=== PATIENT | male | born 1990 | race Caucasian/White ===

== ENCOUNTER 2019-09-30 16:04 | Inpatient (IN) | payer OTHER ==
[~2019-09-30] VITALS: Ht 172.7 cm; Wt 59.4 kg
[2019-09-30 16:06] VITALS: BP 132/82
--- NOTE | 2019-09-30 16:19 | NUR ---
NOTIFIED DR ROLDAN PT WAS REFFERED BY PCP FOR POSSIBLE LT SIDED PNEUMOTHORAX
--- NOTE | 2019-09-30 16:19 | NUR ---
28/M C/O TEARING BACK FROM THE MID BACK RADIATING TO LEFT CHEST X 5 DAYS DENIES TRAUMA WENT TO URGENT CARE ON THURSDAY AND DX WITH ANXIETY. STATES SOB WITH TALKING WENT TO DR AGAIN AND REFERRED TO ER FOR MUFFLED BREATH SOUNDS AT LEFT LUNG DENIES PAIN AT THIS TIME. STATES PAIN USUALLY OCCURS WHEN CHANGING POSITION FROM SUPINE TO SITTING. PT AWAKE ,ALERT ,AFEBRILE ,SCE,CBS, DECREASE BS LLF. SPO2 100% RA, RR 24 AT THIS TIME. HX- CHILDHOOD ASTHMA RX- NONE
--- NOTE | 2019-09-30 16:22 | NUR ---
PA AT BEDSIDE ALONG WITH XRAY.
[2019-09-30] MEDS ORDERED: fentaNYL 0.05 MG/ML VIAL IVP ONE (16:30)
[2019-09-30] MEDS ORDERED: MIDAZOLAM 2 MG/2 ML VIAL IVP ONE (16:30)
[2019-09-30] MEDS ORDERED: MIDAZOLAM 2 MG/2 ML VIAL ONE (17:36)
[2019-09-30] MEDS ORDERED: fentaNYL 0.05 MG/ML VIAL ONE (17:37)
[2019-09-30] MEDS ORDERED: LIDOCAINE MPF 1% 10 ML ONE (17:59)
--- NOTE | 2019-09-30 18:00 | NUR ---
DR ROLDAN AT BEDSIDE STARTED TO PLACE TUBE IN PT LEFT SIDE.
--- NOTE | 2019-09-30 18:10 | NUR ---
CHEST TUBE INSERTED. PT TOLERATED PROCEDURE WELL.
--- NOTE | 2019-09-30 18:15 | NUR ---
LATE ENTRY- 75MCG FENTANYL GIVEN ORDERED WITH DR LAN AT BEDSIDE FOR ADMINISTRATION. 25MCG WASTED.
--- NOTE | 2019-09-30 18:21 | NUR ---
DR ROLDAN DONE WITH CHEST TUBE INSERTION .PT VS STABLE .PT AWAKE ,ALERT.
[2019-09-30] MEDS ORDERED: ACETAMINOPHEN 325 MG TAB PO PRN (18:35)
[2019-09-30] MEDS ORDERED: ONDANSETRON 4 MG/2 ML VIAL IVP PRN (18:35)
--- NOTE | 2019-09-30 19:18 | NUR ---
Patient will be admitted to care of DR LEIVA. Admited to tele. Will go to room 108 b. Belongings list completed. Report to yue rm.
[2019-09-30 19:59] LABS: BARBITURATE, URINE NEG. ng/ml (NEG <=200); BENZODIAZEPINE, URINE NEG. ng/mL (NEG <=200); CANNABINOID, URINE POS. ng/mL (NEG <=50); COCAINE, URINE NEG. ng/mL (NEG <=300); OPIATE, URINE NEG. ng/mL (NEG <=2000); PHENCYCLIDINE SCREEN,URINE NEG. ng/mL (NEG <=25)
[2019-09-30 20:05] LABS: APPEARANCE,URINE CLEAR (CLEAR); BILIRUBIN,URINE 1+ (NEGATIVE); BLOOD, URINE TRACE-I (NEGATIVE); COLOR,URINE YELLOW (YELLOW); LEUKOCYTE ESTERASE ,URINE NEGATIVE (NEGATIVE); NITRITE, URINE NEGATIVE (NEGATIVE); UGLUCOSE NEGATIVE (NEGATIVE)
[2019-09-30 20:15] VITALS: BP 147/87
--- NOTE | 2019-09-30 20:15 | NUR ---
ADMITTED A 28 MALE FROM ED. ACCOMPANIED BY EMT AND RN VIA GURNEY. NO APPARENT DISTRESS NOTED. VISIBLE CHEST RISE AND FALL NOTED. WIT CHEST TUBE ON LEFT CHEST WITH 0ML OUTPUT AT THIS TIME. WITH LEFT AC 20 GAUGE PATENT AND INTACT. INTRODUCED SELF AND REVIEWED PLAN OF CARE. VERBALIZED UNDERSTANDING. WITH COMPLAINT OF PAIN 6/10 ON POSTERIOR CHEST. WILL MEDICATE PER PAIN SCALE. ORIENTED TO HOSPITAL ROUTINE, ENVIRONMENT AND CALL LIGHT. CALL LIGHT WITHIN REACH. BED ON LOW POSITION. WILL CONTINUE TO MONITOR.
[2019-09-30] MEDS: HYDROcodone/APAP 7.5/325 MG 1 TAB PO PRN (20:24)
[2019-09-30 20:49] LABS: RBC,URINE 0-5 /HPF (0-5); WBC,URINE 0-5 /HPF (0-5)
[2019-09-30] MEDS: DOCUSATE SODIUM 100 MG GELCAP PO SCH (21:00)
[2019-09-30 21:33] LABS: BASOPHILS % (AUTO) 0.2 % (0.0-2.0); EOSINOPHILS % (AUTO) 0.2 % (0.0-4.0); HEMATOCRIT 49.7 % (36-52); HEMOGLOBIN 16.7 g/dL (12.0-18.0); LYMPHOCYTES # (AUTO) 1.5 K/uL (2.0-11.5); LYMPHOCYTES % (AUTO) 10.1 % (20.5-51.1); MEAN CORPUSCULAR HEMOGLOBIN 31 pg (27-31); MEAN CORPUSCULAR HGB CONC 34 g/dL (33-37); MEAN CORPUSCULAR VOLUME 91.3 fL (80-94); MONOCYTES # (AUTO) 1.1 K/uL (0.8-1.0); MONOCYTES % (AUTO) 7.7 % (1.7-9.3); NEUTROPHILS % (AUTO) 81.8 % (42.2-75.2); PLATELET COUNT (AUTO) 346 K/uL (140-450); RED BLOOD CELL COUNT(AUTO) 5.45 MIL/uL (4.20-6.10); RED CELL DISTRIBUTION WIDTH 12.9 % (11.6-13.7); WHITE BLOOD COUNT (AUTO) 14.7 K/uL (4.8-10.8)
[2019-09-30 21:48] LABS: CARBON DIOXIDE 30.1 mmol/L (21-32); CREATININE 0.8 mg/dL (0.7-1.3); POTASSIUM 4.1 mmol/L (3.5-5.1)
--- NOTE | 2019-09-30 22:10 | NUR ---
PATIENT AWAKE IN BED. NO APPARENT DISTRESS NOTED. STILL WITH COMPLAINT OF PAIN. NOT RELIEVED BY PAIN MEDICATION EARLIER. MD MADE AWARE. AWAITING FOR FURTHER ORDERS.
[2019-09-30 22:35] LABS: MAGNESIUM 2.1 mg/dL (1.8-2.4); PHOSPHORUS 4.2 mg/dL (2.5-4.9); THYROID STIMULATING HORMONE 1.03 uIU/mL (0.34-3.74)
[2019-09-30] MEDS ORDERED: MORPHINE SULFATE 2 MG/ML SYR IVP PRN (22:50)
[2019-10-01] VITALS: BP 142/80
--- NOTE | 2019-10-01 00:05 | NUR ---
PATIENT AWAKE IN BED WITH GIRLFRIEND. NO APPARENT DISTRESS NOTED. STILL WITH COMPLAINT OF WORSENING PAIN ON BACK. MD MADE AWARE. MD SAW PATIENT AT BEDSIDE. PER MD, WILL INCREASE PAIN MEDICATION ORDER. WILL CONTINUE TO MONITOR.
[2019-10-01] MEDS: MORPHINE SULFATE 2 MG/ML SYR IVP PRN ×6 (01:52→21:45)
--- NOTE | 2019-10-01 02:00 | NUR ---
PATIENT ASLEEP IN BED. NO APPARENT DISTRESS NOTED. VISIBLE CHEST RISE AND FALL NOTED. BED ON LOW POSITION. WILL CONTINUE TO MONITOR.
--- NOTE | 2019-10-01 03:38 | NUR ---
PATIENT ASLEEP IN BED. NO APPARENT DISTRESS NOTED. VISIBLE CHEST RISE AND FALL NOTED. WILL CONTINUE TO MONITOR.
[2019-10-01 04:00] VITALS: BP 116/65
--- NOTE | 2019-10-01 05:30 | NUR ---
PATIENT ASLEEP IN BED. NO APPARENT DISTRESS NOTED. VISIBLE CHEST RISE AND FALL NOTED. WILL CONTINUE TO MONITOR.
[2019-10-01 07:06] LABS: CHOL/HDL RATIO 2.8 (1-4.5)
--- NOTE | 2019-10-01 07:28 | NUR ---
ENDORSED TO AM SHIFT NURSE FOR CONTINUITY OF CARE.
--- NOTE | 2019-10-01 07:29 | NUR ---
RECEIVED REPORT FROM PM NURSE. GIRLFRIEND IS AT BEDSIDE, PT IS RESTING WITH LEFT CHEST TUBE, NO SIGNS OF DISTRESS, BED IN LOWEST POSITION, CALL LIGHT WITHIN REACH.
[2019-10-01 08:00] VITALS: BP 134/77
--- NOTE | 2019-10-01 08:28 | NUR ---
PT COMPLAINED OF 8/10 ACHING, CONTINUOUS PAIN COMING FROM LEFT CHEST TUBE SITE AND LEFT BACK. ADMINISTERED PRN MORPHINE FOR PAIN.
--- NOTE | 2019-10-01 08:30 | NUR ---
Pt resting in bed, awake, girlfriend at bedside. Encouraged to use Incentive Spirometer frequently while awake to improve lung expansion & prevent complications. Pt able to return demonstrate proper of use of IS & agree with POC.
[2019-10-01] MEDS: DOCUSATE SODIUM 100 MG GELCAP PO SCH ×2 (08:51→12:03)
--- NOTE | 2019-10-01 09:11 | NUR ---
PATIENT IS SCREENED AND CATEGORIZED LOW NUTRITION RISK. PATIENT WILL BE SEEN WITHIN 5-7 DAY OF ADMISSION. 10/05/2019-10/07/[address]
--- NOTE | 2019-10-01 11:58 | NUR ---
PT COMPLAINED OF 7/10 ACHING, CONTINUOUS PAIN COMING FROM LEFT CHEST TUBE SITE. ADMINISTERED PRN MORPHINE. PT IS RESTING AT BEDSIDE, BED IN LOWEST POSITION, CALL LIGHT WITHIN REACH.
[2019-10-01 12:00] VITALS: BP 129/73
--- NOTE | 2019-10-01 14:50 | NUR ---
Pt c/o discomfort to anterior left upper chest wall. Noted to have tenderness & mild crepitus to palpation on left upper chest. Dr Patel notified & states he will follow up with Dr. Bryan.
--- NOTE | 2019-10-01 15:55 | NUR ---
Pt assisted to toilet for BM, then assisted back to bed. Pt states BM did not come out & will try again later. C/o 05/31 pain to chest tube insertion site. CT in place with suction, min sanguineous drainage present in collection chamber. Will administer pain med as ordered. Call light within reach.
[2019-10-01] MEDS: KETOROLAC 15 MG/ML VIAL IVP PRN (15:58)
[2019-10-01 16:00] VITALS: BP 132/91
--- NOTE | 2019-10-01 18:00 | NUR ---
DR HARDWICK CAME IN TO SEE PT, TITRATED SUCTION DOWN, SUCTION CHAMBER WITHOUT TIDALING, WATER SEAL WITH MILD TIDALING WHEN COUGHING, PER DR ENG PT AT BEDREST, PT AGREED WITH POC.
[2019-10-01] MEDS ORDERED: KETOROLAC 15 MG/ML VIAL IVP PRN (18:20)
--- NOTE | 2019-10-01 19:20 | NUR ---
RECEIVED REPORT FROM AM SHIFT NURSE. PATIENT ALERT AND ORIENTED X4. NO APPARENT DISTRESS NOTED. VISIBLE CHEST RISE AND FALL NOTED. WITH CHEST TUBE ON LEFT ANTERIOR CHEST ON LOW CONTINUOUS SUCTION. WITH IV ON LEFT AC 20G ON SALINE LOCK. NO APPARENT DISTRESS NOTED. REVIEWED PLAN OF CARE WITH PATIENT. VERBALIZED UNDERSTANDING. WILL CONTINUE TO MONITOR.
[2019-10-01 20:00] VITALS: BP 129/70
--- NOTE | 2019-10-01 21:15 | NUR ---
PATIENT AWAKE IN BED. NO APPARENT DISTRESS NOTED. WILL CONTINUE TO MONITOR.
--- NOTE | 2019-10-01 23:10 | NUR ---
PATIENT ASLEEP IN BED. VISIBLE CHEST RISE AND FALL NOTED. NO APPARENT DISTRESS NOTED. BED ON LOW POSITION. CHEST TUBE STILL ON CONTINUOUS LOW SUCTION. WILL CONTINUE TO MONITOR.
[2019-10-02] VITALS: BP 115/59
--- NOTE | 2019-10-02 01:05 | NUR ---
PATIENT ASLEEP IN BED. NO APPARENT DISTRESS NOTED. VISIBLE CHEST RISE AND FALL NOTED. WILL CONTINUE TO MONITOR.
[2019-10-02] MEDS: MORPHINE SULFATE 2 MG/ML SYR IVP PRN ×4 (02:56→21:30)
--- NOTE | 2019-10-02 03:00 | NUR ---
PATIENT WITH COMPLAINT OF PAIN. MEDICATED PER PAIN SCALE. WILL CONTINUE TO MONITOR.
[2019-10-02 04:00] VITALS: BP 116/71
--- NOTE | 2019-10-02 05:00 | NUR ---
PATIENT ASLEEP IN BED. NO APPARENT DISTRESS NOTED. WILL CONTINUE TO MONITOR.
--- NOTE | 2019-10-02 06:37 | NUR ---
PATIENT AWAKE IN BED, RESTING. NO APPARENT DISTRESS NOTED. WILL CONTINUE TO MONITOR.
[2019-10-02 06:55] LABS: ANION GAP 9.6 (8-16); CREATININE 0.9 mg/dL (0.7-1.3); POTASSIUM 4.6 mmol/L (3.5-5.1)
--- NOTE | 2019-10-02 07:09 | NUR ---
ENDORSED TO AM SHIFT NURSE FOR CONTINUITY OF CARE.
--- NOTE | 2019-10-02 07:10 | NUR ---
Received report from pm nurse Koffi. Pt resting in bed, awake, respirations even & nonlabored in room air. Left lateral chest tube in place, no tidaling present on suction & water seal chambers. 30ml serous drainage present in collection chamber. Surgical dressing intact to CT insertion site, cleanm, dry, & intact. Pt's girlfriend at bedside. Call light within reach.
[2019-10-02 07:29] LABS: BASOPHILS % (AUTO) 0.4 % (0.0-2.0); EOSINOPHILS # (AUTO) 0.1 K/uL (0-0.4); EOSINOPHILS % (AUTO) 0.7 % (0.0-4.0); HEMOGLOBIN 15.8 g/dL (12.0-18.0); LYMPHOCYTES # (AUTO) 1.2 K/uL (2.0-11.5); LYMPHOCYTES % (AUTO) 13.9 % (20.5-51.1); MEAN CORPUSCULAR HEMOGLOBIN 31 pg (27-31); MEAN CORPUSCULAR HGB CONC 34 g/dL (33-37); MEAN CORPUSCULAR VOLUME 90.9 fL (80-94); MONOCYTES % (AUTO) 11.7 % (1.7-9.3); NEUTROPHILS # (AUTO) 6.3 K/uL (1.8-7.7); NEUTROPHILS % (AUTO) 73.3 % (42.2-75.2); PLATELET COUNT (AUTO) 284 K/uL (140-450); RED BLOOD CELL COUNT(AUTO) 5.17 MIL/uL (4.20-6.10); RED CELL DISTRIBUTION WIDTH 12.9 % (11.6-13.7); WHITE BLOOD COUNT (AUTO) 8.6 K/uL (4.8-10.8)
[2019-10-02] MEDS: KETOROLAC 15 MG/ML VIAL IVP PRN ×2 (07:38→18:22)
[2019-10-02 08:00] VITALS: BP 144/83
--- NOTE | 2019-10-02 09:00 | NUR ---
Dr Bryan at bedside to assess pt. Physician discontinued suction & kept chest tube on water seal. No tidaling/bubbling noted to suction & water seal chambers. Pt denies any discomfort at this time, no signs of distress. Encouraged to use incentive spirometer frequently as tolerated to prevent complications & improve lung expansion. Verbalized understanding. Call light within reach.
[2019-10-02] MEDS: DOCUSATE SODIUM 100 MG GELCAP PO SCH ×2 (09:53→21:29)
--- NOTE | 2019-10-02 15:10 | NUR ---
Pt resting in bed, no signs of distress, respirations even & nonlabored in room air. Chest tube in place to water seal, no air leaks noted. Call light within reach.
--- NOTE | 2019-10-02 15:24 | NUR ---
DISCHARGE PLANNING: A 28 Y/O MALE PATIENT FROM HOME, WHO CAME IN DUE TO CHEST PAIN WITH INTERMITTENT SOB. PAST MEDICAL HISTORY INCLUDE CHILDHOOD ASTHMA- RESOLVED. INITIAL DIAGNOSIS OF LEFT PNEUMOTHORAX. WBC 8.6, H/H 15.8/47.0. UDS POSITIVE FOR CANNABINOIDS. CXR ON ADMISSION SHOWED LARGE LEFT SIDE PNEUMOTHORAX. LEFT CHEST TUBE IN PLACE TO WALL SUCTION. FOR POSSIBLE DC TOMORROW IF CXR IS STABLE. CM TO FOLLOW UP. Addendum: 10/08/19 at 1420 by Almita Tarango SS I faxed higher of level referral to [facility], [facility], [facility], and [facility]. Per , patient stated Dr.Ayman Riggs at [facility] is willing to accept patient. I called and spoke with adult caregiver Joslyn from [facility]. She stated she will review patient's clinical information and they will determine if patient needs higher of level care, made aware. I attempted to speak with spring encaser from [facility], , recording states business hours are Thursday-Thursday. I called CM Codie Dong , line does not ring, call goes straight to voicemail, left message. I called CM Sofi , line does not ring, call goes straight to voicemail, left message Addendum: 10/08/19 at 1505 by Almita MENENDEZ Per Edmundo from [facility], they will review referral and call nurses' station and/or Deacon López if they need additional information, made aware. Addendum: 10/08/19 at 1604 by Almita MENENDEZ Joslyn from [facility] provided me with two fax numbers, and . I faxed to both faxes. Addendum: 10/08/19 at 1652 by Almita MENENDEZ food services coordinator Joslyn from [facility] spoke with regarding reason for transfer. Per Joslyn, she spoke with Dr.Ayman Riggs and he stated he did not speak with patient or patient's family, he is not commissioning agent, and in his opinion patient does not require higher of level transfer, made aware. Garcia Smith from transfer Center at [facility] option 3, referral has not been reviewed, she stated they have a lot more referrals to review first. Addendum: 10/08/19 at 6683 by Almita Tarango Per Leonel from [facility] transfer center , they do not have any beds available at this time, and she will check to see if one of their doctors can contact regarding case. She stated they will need auth from insurance, made aware of my conversation with Leonel. Addendum: 10/08/19 at 1715 by Almita Tarango Per Jayden from [facility] transfer center, they do not have any beds available at this time and their Emergency Room is full. He stated they have referral. Addendum: 10/10/19 at 0919 by Vaishali Valdez PATIENT'S LEO MET WITH ME AND INFORM ME THAT PATIENT GOT ACCEPTED AT [facility] IN [place]. SHE ALSO STATED THAT DR. MANNIE FOX, A THORACIC SURGEON [phone] IS ACCEPTING THE PATIENT. CONTACTED [facility] AT [phone], ABLE TO SPEAK TO ESTUARDO SULLIVAN. SHE STATED NO TELE BED AT THIS TIME. PATIENT AND PATIENT'S CRISTIANASCOTTIEJazmin CARTERIE MADE AWARE. CONTACTED KARYNA NAVARRO IKER AT [phone], SHE STATED THE NURSE ASSIGNED FOR THIS PATIENT IS GERMÁN SEVILLA [phone]. SHE STATED GERMÁN IS ON THE PHONE RIGHT NOW BUT SHE WILL TRY TO TRANSFER ME. NO ANSWER, LEFT MESSAGE WITH CONTACT INFO. Addendum: 10/10/19 at 0923 by Vaishali Valdez CM DR. GUAJARDO AND DR. JOSEPH MADE AWARE THAT THERE IS NO TELE BED AT THIS. PER DR JOSEPH AND DR. GUAJARDO MS BED IS OK. CONTACTED ESTUARDO SULLIVAN AT [facility] [phone] REGARDING REQUEST FOR MS BED INSTEAD. SHE STATED SHE SPOKE TO DR FOX THAT A M/S BED IS OK. SHE STATED SHE IS JUST WAITING FOR THE CLINICALS. I INFORMED HER THAT I FAXED IT TO [phone]. [facility] TO FOLLOW UP. Addendum: 10/10/19 at 1056 by Vaishali Valdez CM CONTACTED GERMÁN SEVERAL TIMES, NO ANSWER. LEFT MESSAGE. Addendum: 10/10/19 at 1438 by Vaishali Valdez PATIENT'S LEO TAM CAME TO THE OFFICE AND HANDED ME THE PHONE SAYING DR. FOX WANTED TO SPEAK TO ME. I SPOKE TO DR. FOX, I INFORMED HIM THAT I AM STILL WATING FOR AUTH FROM THE INSURANCE. DR. FOX STATED THAT HE STATED HE WILL HEAD TO THE ADMITTING TO INQUIRE FOR BED AVAILABILITY AND MS BED IS OK FOR THE PATIENT. CONTACTED [facility] AGAIN, NO ANSWER. CONTACTED [facility] AT [phone], ABLE TO SPEAK TO [facility]. HE STATED HE HAS TO TRANSFER ME TO [facility] [employer] [facility] AT [phone], ABLE TO SPEAK TO [facility] REP. PROVIDED HIM WITH ALL THE INFORMATION HE NEEDED. REFERENCE NUMBER [id number]. HE ALSO STATED I CAN GO AHEAD AND FAX CLINICALS AND ORDER TO [phone]. CLINICALS AND ORDERS SENT TO THE PROVIDED NUMBER. CONTACTED GERMÁN AGAIN, NO ANSWER. LEFT MESSAGE. CONTACTED [facility] CODIE DONG OF [facility] AT [phone], SHE STATED GERMÁN IS IN EASTERN TIME. SHE STATED SHE WILL FORWARD THE MESSAGE TO THEIR FIRE SUPPORT SPECIALIST AND PLACED ME ON HOLD. SHE GOT BACK ON ME AND STATED THAT [facility]'S COMPUTER CRUSHED AND WILL PROVIDED ME [facility]'S PHONE NUMBER [phone], SINCE THEY WORK IN THE SAME OFFICE. CONTACTED THE PROVIDED NUMBER, NO ANSWER. LEFT MESSAGE. RECEIVED A CALL FROM ESTUARDO SULLIVAN FROM [facility], SHE STATED PATIENT WILL GO TO [facility] UNDER DR. FOX. HOWEVER, SHE WILL CALL ME BACK FOR THE ROOM NUMBER WHEN AUTH IS AVAILABLE. MET WITH THE PATIENT AND HIS FAMILY AT THE BEDSIDE TO PROVIDED UPDATE. PATIENT'S LEO TAM IS SAYING THAT WHY CAN'T WE JUST CALL AN AMBULANCE AND TRANSPORT THE PATIENT TO [facility]. I EXPLAINED IT TO THEM THAT WE HAVE A PROCESS TO FOLLOW. SHE AGAIN STATED THAT HER MOM IS A RETIRED HUMANE AGENT AT [employer] AND SHE SAID THAT WE CAN DO THAT. I INFORMED HER THAT I AM DOING THE BEST I CAN TO MAKE THE TRANSFER HAPPEN AND I HAVE TO DO IT THE PROPER WAY. PATIENT'S FATHER EVON STEWART REQUESTED TO SPEAK TO THE CNO. I INFORMED HIM THAT I HAVE TO CHECK IF SHE IS AVAILABLE AT THIS TIME. INFORMED MARTHA OF THE PATIENT'S FAMILY'S REQUEST. MET WITH THE PATIENT'S FAMILY AT THE BEDSIDE TOGETHER WITH MARTHA, ALL QUESTIONS AND CONCERNS ANSWERED. PATIENT'S FATHER STATED THAT THEY ARE WILLING TO PAY OUT OF POCKET FOR THE AMBULANCE. RECEIVED A VOICE MESSAGE FROM [facility] STATING TO GO AHEAD AND DO THE TRANSFER, NO NEED FOR AUTH. CONTACTED ESTUARDO SULLIVAN FIRE SUPPORT SPECIALIST AT [facility], SHE STATED PATIENT WILL GO TO ROOM 366-[address] FOX. NUMBER TO GIVE REPORT IS [phone] [phone]. SALLY SPEAR MADE AWARE. CONTACTED [facility] AT [phone], ABLE TO SPEAK TO FARHAD. INFORMED HER THAT THE PATIENT'S FAMILY IS WILLING TO PAY FOR THE AMBULANCE. SHE STATED SHE NEEDED THE CARD NUMBER AND CONFIRMATION FROM THE FAMILY. FAMILY MADE AWARE AND PATIENT'S FATHER EVON STEWART SPOKE TO FARHAD AND PROVIDED HER WITH THE INFO. PER FARHAD SHE WILL CALL ME BACK FOR ETA. RECEIVED A CALL FROM [facility] DUNLAP AT [facility], SHE STATED THAT PER CLINICALS IT SEEMS LIKE THE TRANSFER IS MORE OF A FAMILY PREFERENCE. I INFORMED HER THAT WE HAVE TRIED FAXING THE INQUIRY TO [facility], [facility], [facility] HOWEVER IT'S EITHER NO BEDS AVAILABLE OR THEY ARE STILL REVIEWING THE REFERRAL. SHE STATED TO GO AHEAD AND PROCESS THE TRANSFER AND SHE WILL STILL FORWARD THE REQUEST TO HER PULLEY WORKER. SHE ALSO REQUESTED TO ADVISE THE FAMILY THAT THERE IS NO GUARANTEE FOR APPROVAL AT THIS TIME AND THEY MIGHT GET BILLED FOR THIS ONE. PATIENT AND HIS FAMILY MADE AWARE AND IS IN AGREEMENT. RECEIVED A CALL FROM FARHAD OF [facility], ETA WILL BE 45-60 MIN. PATIENT AND FAMILY MADE AWARE. SALLY SPEAR MADE AWARE.
[2019-10-02 16:00] VITALS: BP 130/73
--- NOTE | 2019-10-02 18:25 | NUR ---
Pt on high fowlers in bed, eating dinner. Toradol given for pain to mid axilla. Pt's girlfriend at bedside.
--- NOTE | 2019-10-02 19:10 | NUR ---
RECEIVED BEDSIDE REPORT FROM AM SHIFT NURSE. PATIENT IS SITTING UP ON BED WITH GIRLFRIEND AT BEDSIDE. NO SOB OR DISTRESS NOTED.IV ACCESS ON LEFT AC 20 GAUGE, SALINE LOCK. PATIENT NOTED WITH LEFT MID AXILLARY CHEST TUBE, WATER SEALED, SUCTION IS OFF. SKIN IS INTACT. BED IN LOW, SAFETY MEASURES IN PLACE.CALL LIGHT WITHIN PATIENT REACH. WILL CONTINUE TO MONITOR PATIENT.
--- NOTE | 2019-10-02 21:06 | NUR ---
ROUNDS DONE. PATIENT IS AWAKE IN HIGH FOWLERS POSITION. GIRLFRIEND AT BEDSIDE. CALL LIGHT WITHIN PATIENT REACH. WILL CONTINUE TO MONITOR PATIENT.
--- NOTE | 2019-10-03 00:02 | NUR ---
VITAL SIGNS TAKEN AT THIS TIME. NO DISTRESS NOTED. WILL CONTINUE TO MONITOR PATIENT.
[2019-10-03 00:05] VITALS: BP 135/86
[2019-10-03] MEDS: KETOROLAC 15 MG/ML VIAL IVP PRN ×2 (00:28→08:21)
--- NOTE | 2019-10-03 03:57 | NUR ---
ROUNDS DONE. NO DISTRESS NOTED. CALL LIGHT PLACED WITHIN PATIENT REACH. WILL CONTINUE TO MONITOR PATIENT.
[2019-10-03] MEDS: MORPHINE SULFATE 2 MG/ML SYR IVP PRN ×4 (04:46→21:47)
[2019-10-03 06:25] LABS: BASOPHILS % (AUTO) 0.6 % (0.0-2.0); EOSINOPHILS # (AUTO) 0.1 K/uL (0-0.4); EOSINOPHILS % (AUTO) 1.9 % (0.0-4.0); HEMATOCRIT 45.6 % (36-52); HEMOGLOBIN 15.3 g/dL (12.0-18.0); LYMPHOCYTES # (AUTO) 1.6 K/uL (2.0-11.5); MEAN CORPUSCULAR HEMOGLOBIN 31 pg (27-31); MEAN CORPUSCULAR HGB CONC 34 g/dL (33-37); MONOCYTES # (AUTO) 0.8 K/uL (0.8-1.0); MONOCYTES % (AUTO) 12.9 % (1.7-9.3); NEUTROPHILS # (AUTO) 3.9 K/uL (1.8-7.7); NEUTROPHILS % (AUTO) 59.6 % (42.2-75.2); PLATELET COUNT (AUTO) 295 K/uL (140-450); RED BLOOD CELL COUNT(AUTO) 5.01 MIL/uL (4.20-6.10); RED CELL DISTRIBUTION WIDTH 12.7 % (11.6-13.7); WHITE BLOOD COUNT (AUTO) 6.5 K/uL (4.8-10.8)
--- NOTE | 2019-10-03 06:35 | NUR ---
PATIENT IN STABLE CONDITION. CALL LIGHT WITHIN PATIENT REACH. WILL ENDORSE TO AM SHIFT NURSE FOR CONTINUITY OF CARE.
[2019-10-03 06:52] LABS: ANION GAP 8.5 (8-16); CARBON DIOXIDE 31.8 mmol/L (21-32); CREATININE 0.9 mg/dL (0.7-1.3); POTASSIUM 4.3 mmol/L (3.5-5.1)
--- NOTE | 2019-10-03 07:10 | NUR ---
RECEIVED BEDSIDE REPORT FROM SUPERVISOR SHUTTLE VENEERING NURSE. PT IS AWAKE AND ALERT IN BED, FEMALE VISITOR AT BEDSIDE. PT DOES NOT APPEAR TO BE IN ANY DISTRESS, TALKING AND SMILING. CHEST TUBE IS IN PLACE L CHEST, DRAINING LUNG FLUID BY GRAVITY. CURRENTLY CHEST TUBE HAS 50 ML OUTPUT. IV SITE L AC 20 G, SALINE LOCK. PT IS ON ROOM AIR, SKIN IS INTACT. CALL LIGHT IS WITHIN REACH. WILL CONTINUE TO MONITOR.
[2019-10-03 07:14] LABS: PHOSPHORUS 4.9 mg/dL (2.5-4.9)
[2019-10-03 08:00] VITALS: BP 142/73
[2019-10-03] MEDS: DOCUSATE SODIUM 100 MG GELCAP PO SCH ×2 (08:21→21:17)
--- NOTE | 2019-10-03 08:25 | NUR ---
ADMINISTERED PRN TORADOL FOR 7/10 L CHEST PAIN. WILL REASSESS PT WITHIN AN HOUR. ORDERED AM MEDS ALSO ADMINISTERED. PT TOLERATED WELL.
[2019-10-03 16:00] VITALS: BP 146/76
--- NOTE | 2019-10-03 16:02 | NUR ---
CALLED RADIOLOGY REGARDING CHEST CT, DECORATING MACHINE TENDER SAYS THEY ARE VERY BUSY WITH URGENT ER CASES, AND WILL TAKE THE PT SOON THEY CAN.
--- NOTE | 2019-10-03 16:43 | NUR ---
PT RESTING COMFORTABLY IN BED, VISITOR IS AT BEDSIDE. NO S/S OF DISTRESS. CHEST TUBE IS CLAMPED. WAITING TO HAVE PT TAKEN FOR CT SCAN.
[2019-10-03] MEDS ORDERED: IBUP-2213 PO (16:53)
[2019-10-03] MEDS ORDERED: HYDR-5122 PO (16:53)
--- NOTE | 2019-10-03 18:01 | NUR ---
PT TAKEN OFF UNIT FOR FOR CHEST CT SCAN AT THIS TIME.
--- NOTE | 2019-10-03 18:25 | NUR ---
PT IS BACK FROM CT SCAN AND C/O 05/31 PAIN. WILL MEDICATE
--- NOTE | 2019-10-03 19:20 | NUR ---
ENDORSED PT TO DIRECTOR DATA NURSE IN STABLE CONDITION.
--- NOTE | 2019-10-03 19:25 | NUR ---
RECEIVED PT FROM SALLY SPEAR PT IS AAOX4 ON BED REST WITH LEFT CHEST TUBE CLAMP DENIES ANY PAIN AT THIS TIME, PT ALREADY HAD A CT CHEST AND WAITING FOR RESULT INITIAL ASSESSMENT DONE
--- NOTE | 2019-10-03 22:15 | NUR ---
DR MISHRA CAME TO SEE THE PT AND AFTER GIVEING PAIN MEDIC DR MISHRA REMOVED THE CHEST TUBE; AND SEALED THE PLACE WHERE CHEST TUBE WAS INSERTED PT REMAIN STABLE NOT DISTRESS NOTED
[2019-10-04] VITALS (15 sets, daily range): BP systolic 101–149; BP diastolic 58–91
--- NOTE | 2019-10-04 00:38 | NUR ---
;PT SLEEPING WELL NOT DISTRESS NOTED ON CLOSE MONITORING AFTER CHEST TUBE WAS REMOVED
--- NOTE | 2019-10-04 02:30 | NUR ---
RADIOLOGIST CALL TO REPORT CRITICAL VALUES FOR CHEST X RAY AND SAY [address] MISHRA WAS NOTIFY AND ORDER TO FOLLOW
--- NOTE | 2019-10-04 05:18 | NUR ---
PT ON CONSTANT MONITORING HEART ON TELEMETRY SR AND 02 AT THIS TIME 02 95%; PT DENIES ANY PAIN
--- NOTE | 2019-10-04 06:54 | NUR ---
PT ON 2 LTS VIA CO 02 Sat 99% on telemetry sr 96 denies any pain at this time and still waiting for the result of chest x ray
--- NOTE | 2019-10-04 06:56 | NUR ---
pt will be endorsed to day shift nurse for continue of care
--- NOTE | 2019-10-04 07:00 | NUR ---
PT BACK ON UNIT FROM ICU. RECEIVED REPORT FROM ICU NURSE FOR CONTINUITY OF CARE. PT IN STABLE CONDITION.
--- NOTE | 2019-10-04 07:15 | NUR ---
RECEIVED REPORT FROM RIDING TEACHER NURSE FOR CONTINUITY OF CARE. PT IN STABLE CONDITION. RESPIRATIONS EVEN AND UNLABORED. IV INTACT AND PATENT. SAFETY MEASURES IN PLACE. BED IN LOW POSITION. CALL LIGHT AT BEDSIDE. WILL CONTINUE TO MONITOR.
[2019-10-04] MEDS: DOCUSATE SODIUM 100 MG GELCAP PO SCH ×2 (09:41→20:37)
--- NOTE | 2019-10-04 09:44 | NUR ---
GAVE ORDERED DUE MEDICATIONS AT THIS TIME. PT TOLERATED WELL. WILL CONTINUE TO MONITOR.
--- NOTE | 2019-10-04 11:00 | NUR ---
DR. MARX RADIOLOGY CALLED TO INFORM ME OF PT CHEST X-RAY RESULTS AND TO INFORM ANTONINO PANG. ANTONINO PANG INFORMED AND ALFREDA MCDONALD CONSULTATION PLACED.
--- NOTE | 2019-10-04 12:23 | NUR ---
Historic Site Administrator Note: Basic Screen: Yes High Risk DC Screen [place]: MARIE Rahman Relationship: MOTHER Pre-Admission Living Arrangements: Lives Alone Prior ADL Independent Current Home Health Name/Tel: N/A Current DME/02 Name/Tel: N/A Current Hospice Name/Tel: N/A Current Dialysis Name/Tel: N/A Healthcare Decision Maker: Patient Advance Directive No - REFUSED Physician Orders for Life Sustaining Treatment Form No Patient/Family Have Educational Needs No Information Taught: Advance Directive Community Resources Person Taught: Patient Teaching Tools: Verbal Factors Affecting Learning: None Participation Level: Refused Evaluation: Verbalizes Understanding Discipline: Case Mgt/Social Svcs Tentative Discharge Plan/Destination: No Needs Identified Will require assistance post discharge: No Referred to Affiliate Marketing Manager: No Tentative Discharge Plan Summary: Patient is a 28-year-old male admitted for left pneumothorax. Patient has PMHX of asthma. Patient was admitted from home. SW met with patient at bedside to verify demographics. Patient lives at [address] [place] [address] [place] [address]. Patient stated he lives alone and that his PCP is in [place], [place]. Patient is a [employer] Student but resides in [place] when not in school. Patient reports no mental health history and occasional recreational use of marijuana. Patient refused resources at this time. Patient's tentative discharge plan is to return home. No further needs identified. Signature: BIBIANA Fried Date: Oct 04, 2019 Time: 12:22
--- NOTE | 2019-10-04 13:24 | NUR ---
PT TRANSFERRED TO ICU AT THIS TIME. GAVE REPORT TO ICU NURSE FOR CONTINUITY OF CARE. PT IN STABLE CONDITION.
--- NOTE | 2019-10-04 13:25 | NUR ---
PT TRANSFERRED FROM TELE 108B TO ICU 5. VSS. NO S/SX OF DISTRESS AT THIS TIME,
[2019-10-04] MEDS ORDERED: fentaNYL 0.05 MG/ML VIAL IVP SCH (13:40)
[2019-10-04] MEDS ORDERED: MIDAZOLAM 2 MG/2 ML VIAL IV SCH (13:40)
[2019-10-04] MEDS ORDERED: LIDOCAINE MPF 1% 10 MG/ML VIAL INJ SCH (13:40)
--- NOTE | 2019-10-04 13:55 | NUR ---
CHEST TUBE INSERTION AT BEDSIDE BY DR. MAN. TIME OUT CALLED. VSS. PT TOLERATING WELL.
--- NOTE | 2019-10-04 13:56 | NUR ---
RASHES NOTED ON LEFT AXILLA AREA WHEN DR. MAN REMOVED THE OLD CHEST TUBE SITE TAPE. PATIENT STATES HE HAS A VERY SENSITIVE SKIN. DENIES ANY DISCOMFORTS.
--- NOTE | 2019-10-04 14:00 | NUR ---
FENTANYL 0.075 MCG IVP AND VERSED 2 MG IVP GIVEN PRIOR TO CHEST TUBE INSERTION.
--- NOTE | 2019-10-04 14:05 | NUR ---
LEFT CHEST TUBE SIZE [address] MAN. CONNECTED TO PLEUREVAC WITH 20 CM WATER SUCTION.
[2019-10-04] MEDS: MORPHINE SULFATE 2 MG/ML SYR IVP PRN ×2 (14:28→18:45)
--- NOTE | 2019-10-04 14:30 | NUR ---
SMALL AMT. SEROSANGUINOUS NOTED FROM LEFT CT.
[2019-10-04] MEDS: KETOROLAC 15 MG/ML VIAL IVP PRN ×2 (14:49→21:22)
--- NOTE | 2019-10-04 16:00 | NUR ---
SERVICE WORKER HELPER SHOWS SR WITHOUT ECTOPICS. NO RESP. DISTRESS. DIMINISHED BREATHE SOUNDS.
[2019-10-04] MEDS: HYDROcodone/APAP 7.5/325 MG 1 TAB PO PRN (16:38)
--- NOTE | 2019-10-04 18:00 | NUR ---
LEFT CHEST TUBE WITH SCANT AMT. OF SERO-SANG. DR. Sanchez SAT 98 TO 100%.
--- NOTE | 2019-10-04 18:27 | NUR ---
TELEPHONE REPORT GIVEN TO BEATRIS SHERMAN FROM [facility]. PT WILL BE TRANSFERRED TO TELEMETRY ROOM 104 B. PT IS IN STABLE CONDITION.
--- NOTE | 2019-10-04 19:00 | NUR ---
TRANSFERRED TO TELE PER BED WITH LEFT CHEST TUBE INTACT. DRESSINGS DRY AND INTACT. WAS ABLE TO MOVE FROM ICU BED TO TELE BED WITHOUT ANY PROBLEMS. GIRLFRIEND AT BEDSIDE.
--- NOTE | 2019-10-04 19:30 | NUR ---
RECEIVED BEDSIDE REPORT FROM AM SHIFT RN FOR PT'S CONTINUITY OF CARE. PT WAS TRANSFERRED FROM ICU TO TELE AFTER CHEST TUBE INSERTION. PT AAOX4, ON TOOL DESIGNER, ON ROOM AIR, HAS LEFT AC 20G SALINE LOCK, DENIES PAIN AT THIS TIME. PT AND SIGNIFICANT OTHER FAMILIAR WITH CHEMICAL WORKER ROUTINE. SAFETY MEASURES IN PLACE, CHEST TUBE ON CONTINUOUS SUCTION AT 20. WILL MONITOR PT THROUGHOUT SHIFT.
--- NOTE | 2019-10-04 21:22 | NUR ---
PT C/O BREAKTHROUGH PAIN, ADMINISTERED PRN IV PAIN MEDICATION. PT TOLERATED IT WELL. PT'S NEEDS MET. WILL CONT TO MONITOR.
[2019-10-05] VITALS: BP 149/87
--- NOTE | 2019-10-05 | NUR ---
VS CHECKED AND CHARTED. PT ASLEEP WITH NO SIGNS OF DISTRESS. CHEST TUBE PATENT AND ON CONTINUOUS SUCTIONING AT 20.
--- NOTE | 2019-10-05 02:30 | NUR ---
PT ASLEEP WITH NO SIGNS OF DISTRESS. WILL CONTINUE TO MONITOR PT.
[2019-10-05 04:00] VITALS: BP 126/75
--- NOTE | 2019-10-05 04:50 | NUR ---
PT C/O PAIN. MEDICATED WITH PRN IVP PAIN MEDICATION ORDERED. PT'S NEEDS MET AT THIS TIME. WILL CONTINUE TO MONITOR PT.
[2019-10-05] MEDS: KETOROLAC 15 MG/ML VIAL IVP PRN ×3 (04:52→23:31)
[2019-10-05 05:59] LABS: BASOPHILS % (AUTO) 0.4 % (0.0-2.0); EOSINOPHILS # (AUTO) 0.2 K/uL (0-0.4); EOSINOPHILS % (AUTO) 3.8 % (0.0-4.0); LYMPHOCYTES # (AUTO) 1.6 K/uL (2.0-11.5); LYMPHOCYTES % (AUTO) 25.8 % (20.5-51.1); MEAN CORPUSCULAR HEMOGLOBIN 30 pg (27-31); MEAN CORPUSCULAR HGB CONC 33 g/dL (33-37); MEAN CORPUSCULAR VOLUME 90.8 fL (80-94); MONOCYTES # (AUTO) 0.8 K/uL (0.8-1.0); MONOCYTES % (AUTO) 13.2 % (1.7-9.3); NEUTROPHILS # (AUTO) 3.6 K/uL (1.8-7.7); NEUTROPHILS % (AUTO) 56.8 % (42.2-75.2); PLATELET COUNT (AUTO) 315 K/uL (140-450); RED BLOOD CELL COUNT(AUTO) 4.62 MIL/uL (4.20-6.10); RED CELL DISTRIBUTION WIDTH 12.5 % (11.6-13.7); WHITE BLOOD COUNT (AUTO) 6.3 K/uL (4.8-10.8)
[2019-10-05 06:07] LABS: ANION GAP 13.3 (8-16); CARBON DIOXIDE 30.4 mmol/L (21-32); CREATININE 0.8 mg/dL (0.7-1.3); POTASSIUM 3.7 mmol/L (3.5-5.1)
--- NOTE | 2019-10-05 06:30 | NUR ---
MADE ROUNDS. PT LYING DOWN, DENIES ANY NEEDS OR PAIN AT THIS TIME. WILL ENDORSE TO AM SHIFT RN FOR PT'S CONT. OF CARE.
--- NOTE | 2019-10-05 07:10 | NUR ---
RECEIVED BEDSIDE REPORT FROM ARCHITECTURAL TECHNOLOGIST NURSE LEI. PT IS ASLEEP, GF IS AT BEDSIDE. PT IN NO ACUTE DISTRESS. ON ROOM AIR, SKIN INTACT ASIDE FROM THE CHEST TUBE INCISION. CHEST TUBE IN ON CONTINUOUS SUCTION AT 20 MM/HG. PER NIGHT NURSE, CHEST TUBE WAS INSERTED YESTERDAY AFTERNOON, AND SO FAR THERE IS 10 ML OUTPUT TOTAL. IV SITE L AC 20 G, SALINE LOCK. CALL LIGHT IS WITHIN REACH. WILL CONTINUE TO MONITOR.
--- NOTE | 2019-10-05 07:25 | NUR ---
[place] ENDORSED TO TEAM PSYCHOLOGIST NURSE IN STABLE CONDITION.
[2019-10-05 08:00] VITALS: BP 112/67
[2019-10-05] MEDS: HYDROcodone/APAP 7.5/325 MG 1 TAB PO PRN ×2 (08:46→17:39)
[2019-10-05] MEDS: DOCUSATE SODIUM 100 MG GELCAP PO SCH ×2 (08:49→21:00)
--- NOTE | 2019-10-05 08:50 | NUR ---
AM MEDS ADMINISTERED, PT TOLERATED WELL. PT DECLINED COLACE BECAUSE HE HAS BEEN HAVING NORMAL BM'S. ADMINISTERED PRN NORCO FOR 5/10 PAIN.
--- NOTE | 2019-10-05 11:25 | NUR ---
PT SEEN BY DR ROBERSON. PER DR ROBERSON, CHEST TUBE SUCTIONING TO BE TURNED OFF TOMORROW AND CLAMPED ON THURSDAY, AFTER WHICH HE WILL REEVALUATE THE PT'S LUNG.
[2019-10-05 12:00] VITALS: BP 137/76
[2019-10-05 16:00] VITALS: BP 138/65
--- NOTE | 2019-10-05 16:18 | NUR ---
10/05/19 RD INITIAL ASSESSMENT COMPLETED PLEASE REFER TO NUTRITION ASSESSMENT UNDER CARE ACTIVITY FOR ESTIMATED NUTRITIONAL NEEDS. 1. CONTINUE REGULAR DIET TOLERATED 2. ADD HEALTH SHAKE TID WITH MEALS 3. RD TO FOLLOW-UP 5-7 DAYS, LOW RISK YONATAN VIVEROS, RD
--- NOTE | 2019-10-05 18:07 | NUR ---
PT'S IV HAS DISLODGED AND LEAKING. WILL ATTEMPT NEW IV PLACEMENT.
--- NOTE | 2019-10-05 18:45 | NUR ---
NEW IV INSERTED: Wenceslao Shrestha GMia
--- NOTE | 2019-10-05 19:07 | NUR ---
15 ML TOTAL CHEST TUBE OUTPUT FOR THE SHIFT.
--- NOTE | 2019-10-05 19:10 | NUR ---
RECEIVED BEDSIDE REPORT FROM AM SHIFT NURSE SALLY PT IS AWAKE, ALERT, O X 4, AMBULATORY, GF IS AT BEDSIDE. PT IN NO ACUTE DISTRESS. ON ROOM AIR, SKIN INTACT ASIDE FROM THE CHEST TUBE INCISION. CHEST TUBE IN ON CONTINUOUS SUCTION AT 20 MM/HG. PER ENDORSEMENT CHEST TUBE WAS INSERTED 10/04/19-PM TOTAL OF 25 ML IV SITE R AC 22 G, SALINE LOCK. CALL LIGHT IS WITHIN REACH. WILL CONTINUE TO MONITOR.
--- NOTE | 2019-10-05 21:22 | NUR ---
PT REFUSED COLACE HE WENT TO HAVE BM X 1
[2019-10-05] MEDS: MORPHINE SULFATE 2 MG/ML SYR IVP PRN (23:25)
--- NOTE | 2019-10-05 23:26 | NUR ---
PT WANTS THE TORADOL. PHARMACY: RETURNED THE MORPHINE
--- NOTE | 2019-10-05 23:31 | NUR ---
PT'S TORADOL ADMINISTERED, PT TOLERATED PROCEDURE. WILL MONITOR PATIENT
[2019-10-06] VITALS: BP 120/68
--- NOTE | 2019-10-06 02:25 | NUR ---
PT HAD UNCONTROLLABLE DIARRHEA AGAIN ON IT WAS AGAIN ON THE FLOOR ON THE BATHROOM, BEAMING INSPECTOR CLEANING THE ROOM
--- NOTE | 2019-10-06 02:26 | NUR ---
DR. MISHRA AWARE THAT PT HAS EPISODES OF DIARRHEA. LOMOTIL IS THE ONLY THE THING THAT HE CAN GIVE FOR NOW, WHICH THE PT ALREADY HAS.
[2019-10-06] MEDS: KETOROLAC 15 MG/ML VIAL IVP PRN ×2 (07:03→16:01)
--- NOTE | 2019-10-06 07:10 | NUR ---
RECEIVED BEDSIDE REPORT FROM SOIL SORT WORKER NURSE, PT IS AWAKE AND ALERT IN BED, GF IS AT BEDSIDE. PT IN NO ACUTE DISTRESS. CHEST TUBE ON 20 MM/HG CONTINUOUS SUCTION. CURRENT TOTAL OUTPUT IS 40 ML (15 ML DURING LAST SOIL SORT WORKER). IV SITE R AC 22 G, SALINE LOCK. CALL LIGHT IS WITHIN REACH. WILL CONTINUE TO MONITOR.
[2019-10-06 08:00] VITALS: BP 120/74
[2019-10-06] MEDS: DOCUSATE SODIUM 100 MG GELCAP PO SCH ×2 (09:00→21:00)
--- NOTE | 2019-10-06 10:34 | NUR ---
AM SCHEDULED SUBQ HEPARIN ADMINISTERED. PT DECLINED COLACE BECAUSE HE ALREADY HAD A BM TODAY. PT NOT C/O ANY PAIN AT THIS MOMENT. WILL CONTINUE TO MONITOR.
--- NOTE | 2019-10-06 10:44 | NUR ---
AWAKE AND ALERT VERBALLY RESPONSIVE CHEST TUBE LEFT SIDE VACUTRON ON INTERMITTENTLY FUNCTIONING WELL
--- NOTE | 2019-10-06 13:53 | NUR ---
PT IS AWAKE AND ALERT, NO DISTRESS, NO C/O PAIN AT THIS TIME. PT GOT UP TO GO TO THE BATHROOM EARLIER, AND SAID HE STARTED FEELING SHORT OF BREATH AND TIRED. I TALKED TO DR JOSEPH ABOUT THIS, AND DR JOSEPH EXPLAINED THAT IT IS LIKELY DUE TO PT BEING DECONDITIONED FROM LYING IN BED FOR SEVERAL DAYS. PT MADE AWARE.
[2019-10-06 16:00] VITALS: BP 133/61
[2019-10-06] MEDS ORDERED: NAPROXEN 500 MG TAB PO PRN (16:10)
[2019-10-06] MEDS ORDERED: KETOROLAC 15 MG/ML VIAL IVP PRN (16:15)
--- NOTE | 2019-10-06 19:20 | NUR ---
ENDORSED PT TO PIECE WORKER NURSE IN STABLE CONDITION
--- NOTE | 2019-10-06 19:21 | NUR ---
RECEIVED PT AWAKE, ALERT ORIENTED X 4, AMBULATORY, NO COMPLAINTS OF PAIN. WITH IV ON THE R AC G 22.SALINE LOCK. PT WITH CHEST TUBE ATTACHED ON THE LEFT MID AXILLA ON CONTINUOUS SUCTION, NO BLEEDING NOTED SITE, SWELLING, CHEST OUTPUT WAS TOTAL AM SHIFT 50 ML. PLACED ON LOW BED, WITH CALL LIGHT WITHIN REACH. WITH FRIEND AT BEDSIDE.
--- NOTE | 2019-10-06 21:00 | NUR ---
PT AMBULATORY, PLT 315, PT GOES TO THE BATHROOM. REQUESTED IF POSSIBLE NOT TO HAVE THE HEPARIN TONIGHT. DR. MISHRA WILL BE MADE AWARE.
--- NOTE | 2019-10-06 21:01 | NUR ---
PT WENT TO THE BATHROOM WITH BM, REFUSED COLACE
[2019-10-06] MEDS: HYDROcodone/APAP 5/325 MG 1 TAB TAB PO PRN (23:21)
--- NOTE | 2019-10-06 23:43 | NUR ---
DR. MISHRA MADE AWARE DOCUSATE NA AND HEPARIN NA NOT GIVEN TONIGHT
[2019-10-06 23:59] VITALS: BP 142/75
--- NOTE | 2019-10-07 02:30 | NUR ---
SLEEPING WELL, NO PAIN, NO RESPIRATORY DISTRESS. WILL CONTINUE TO MONITOR
--- NOTE | 2019-10-07 04:00 | NUR ---
CHECKED ON INPUT AND OUTPUT. CHEST TUBE DRAINAGE 5 ML. TOTAL OF 55 ML
--- NOTE | 2019-10-07 06:44 | NUR ---
PT SLEEPING BUT EASILY AROUSABLE; PT IN STABLE CONDITION. WILL ENDORSE TO NEXT SHIFT
--- NOTE | 2019-10-07 07:10 | NUR ---
RECEIVED PT FROM NIGHT NURSE. PT AWAKE IN BED AAOX4. NO DISTRESS NOTED. REPORTS PAIN AT CHEST TUBE SITE, WILL GIVE PRN PAIN MEDS. CHEST TUBE IN PLACE AT LEFT AXILLARY WITH CONTINUOUS SUCTION. RESPIRATIONS EVEN AND UNLABORED ON ROOM AIR. IV IN PLACE R AC 22G SALINE LOCKED. REGULAR DIET. SAFETY MEASURES IN PLACE. BED IN LOW POSITION. CALL LIGHT WITHIN REACH. WILL CONTINUE TO MONITOR.
[2019-10-07 08:00] VITALS: BP 122/68
[2019-10-07] MEDS: DOCUSATE SODIUM 100 MG GELCAP PO SCH ×2 (09:00→21:00)
[2019-10-07] MEDS: HYDROcodone/APAP 5/325 MG 1 TAB TAB PO PRN ×2 (09:18→18:19)
--- NOTE | 2019-10-07 09:21 | NUR ---
MEDICATIONS ADMINISTERED. COLACE AND HEPARIN HELD REQUESTED BY PT. NORCO GIVEN FOR PAIN OF 6 AT SITE OF CHEST TUBE. WILL CONTINUE TO MONITOR.
--- NOTE | 2019-10-07 11:26 | NUR ---
PT IN BED AAOX4. NO DISTRESS NOTED. DENIES PAIN. SAFETY MEASURES IN PLACE. WILL CONTINUE TO MONITOR.
--- NOTE | 2019-10-07 13:01 | NUR ---
PT GIVEN WATER. DENIES PAIN. NO DISTRESS NOTED. CALL LIGHT WITHIN REACH. WILL CONTINUE TO MONITOR.
--- NOTE | 2019-10-07 14:46 | NUR ---
PT REQUESTS CD WITH RADIOLOGY IMAGING. CD DELIVERED AT THIS TIME. PT ON HIS FEET ACCOMPANIED BY SIGNIFICANT OTHER. NO DISTRESS NOTED. WILL CONTINUE TO MONITOR.
[2019-10-07 16:00] VITALS: BP 131/67
--- NOTE | 2019-10-07 17:02 | NUR ---
PT STANDING AT THE BEDSIDE. NO DISTRESS NOTED. DENIES PAIN. SAFETY MEASURES IN PLACE. WILL CONTINUE TO MONITOR.
--- NOTE | 2019-10-07 19:15 | NUR ---
PT ENDORSED TO NIGHT NURSE FOR CONTINUITY OF CARE.
--- NOTE | 2019-10-07 19:16 | NUR ---
RECEIVED REPORT FROM AM SHIFT NURSE. PATIENT ALERT AND ORIENTED X4. NO APPARENT DISTRESS NOTED. VISIBLE CHEST RISE AND FALL NOTED. WITH CHEST TUBE ON LEFT MID AXILLA AREA. ON CONTINUOUS LOW SUCTION. REVIEWED PLAN OF CARE WITH PATIENT AND SIGNIFICANT OTHER. VERBALIZED UNDERSTANDING. WILL CONTINUE TO MONITOR.
--- NOTE | 2019-10-07 21:15 | NUR ---
PATIENT AWAKE IN BED. NO APPARENT DISTRESS NOTED. WILL CONTINUE TO MONITOR.
--- NOTE | 2019-10-07 23:10 | NUR ---
PATIENT ASLEEP IN BED. NO APPARENT DISTRESS NOTED. VISIBLE CHEST RISE AND FALL NOTED. WILL CONTINUE TO MONITOR.
[2019-10-08] VITALS: BP 153/92
[2019-10-08] MEDS: HYDROcodone/APAP 5/325 MG 1 TAB TAB PO PRN ×2 (00:26→13:46)
--- NOTE | 2019-10-08 01:05 | NUR ---
ROUNDS DONE. PATIENT ASLEEP IN BED. NO APPARENT DISTRESS NOTED. WILL CONTINUE TO MONITOR.
--- NOTE | 2019-10-08 03:00 | NUR ---
CHECKS DONE. PATIENT ASLEEP IN BED. CHEST TUBE IN PLACE ON LOW CONTINUOUS SUCTION. WILL CONTINUE TO MONITOR.
--- NOTE | 2019-10-08 04:50 | NUR ---
PATIENT ASLEEP IN BED. NO APPARENT DISTRESS NOTED. WILL CONTINUE TO MONITOR.
--- NOTE | 2019-10-08 06:33 | NUR ---
PATIENT AWAKE IN BED. DENIES PAIN NOR DISCOMFORT. NO APPARENT DISTRESS NOTED. WILL CONTINUE TO MONITOR.
--- NOTE | 2019-10-08 07:09 | NUR ---
ENDORSED TO AM SHIFT NURSE FOR CONTINUITY OF CARE.
--- NOTE | 2019-10-08 07:10 | NUR ---
RECEIVED PT FROM NIGHT NURSE. PT WITH EYES CLOSED, AROUSABLE TO SPEECH. AAOX4. NO DISTRESS NOTED. DENIES PAIN AT THIS TIME. RESPIRATIONS EVEN AND UNLABORED ON ROOM AIR. SKIN INTACT. IV IN PLACE R AC 22G PATENT AND ASYMPTOMATIC SALINE LOCKED. BED IN LOW POSITION. SAFETY MEASURES IN PLACE. CALL LIGHT WITHIN REACH. WILL CONTINUE TO MONITOR.
[2019-10-08 08:00] VITALS: BP 136/76
[2019-10-08] MEDS: DOCUSATE SODIUM 100 MG GELCAP PO SCH ×2 (09:00→21:00)
--- NOTE | 2019-10-08 09:30 | NUR ---
PT REFUSES SCHEDULED MORNING MEDICATIONS. NO DISTRESS NOTED. WILL CONTINUE TO MONITOR.
--- NOTE | 2019-10-08 11:30 | NUR ---
CHEST TUBE CONTINUOUS SUCTION TURNED OFF PER MD ORDER. CHEST XRAY ORDERED FOR FOLLOWUP AT 1530. WILL CONTINUE TO MONITOR.
--- NOTE | 2019-10-08 14:02 | NUR ---
PT IN BED AWAKE. NO DISTRESS NOTED. DENIES PAIN. SAFETY MEASURES IN PLACE. WILL CONTINUE TO MONITOR.
--- NOTE | 2019-10-08 15:52 | NUR ---
PT COMPLAINS OF SHORTNESS OF BREATH. VITAL SIGNS WITHIN NORMAL LIMITS.
[2019-10-08 16:00] VITALS: BP 132/78
--- NOTE | 2019-10-08 16:43 | NUR ---
CONTINUOUS SUCTION FOR CHEST TUBE RESUMED PER MD ORDER. SAFETY MEASURES IN PLACE. WILL CONTINUE TO MONITOR.
[2019-10-08] MEDS ORDERED: HYDROcodone/APAP 5/325 MG 1 TAB TAB PO SCH (17:15)
--- NOTE | 2019-10-08 19:21 | NUR ---
REPORT GIVEN TO NIGHT NURSE FOR CONTINUITY OF CARE.
--- NOTE | 2019-10-08 19:22 | NUR ---
RECEIVED REPORT FROM AM SHIFT NURSE. PATIENT ALERT AND ORIENTED X4. NO APPARENT DISTRESS NOTED. ON LEFT CHEST TUBE CONTINUOUS SUCTION. WITH PIV ON RIGHT AC 22G ON SALINE LOCK. DENIES PAIN NOR DISCOMFORT AT THIS TIME. REVIEWED CURRENT PLAN OF CARE. WILL CONTINUE TO MONITOR.
--- NOTE | 2019-10-08 21:20 | NUR ---
PATIENT AWAKE IN BED. NO APPARENT DISTRESS NOTED. CHEST TUBE ON LEFT CHEST INTACT. DENIES PAIN NOR DISCOMFORT AT THIS TIME. WILL CONTINUE TO MONITOR.
--- NOTE | 2019-10-08 23:15 | NUR ---
PATIENT IN BED AWAKE. NO APPARENT DISTRESS NOTED. VISIBLE CHEST RISE AND FALL NOTED. CHEST TUBE INTACT AND PATENT. WILL CONTINUE TO MONITOR.
[2019-10-09] VITALS: BP 148/89
--- NOTE | 2019-10-09 01:10 | NUR ---
PATIENT ASLEEP IN BED. NO APPARENT DISTRESS NOTED. WITH CHEST TUBE ON LEFT CHEST CONNECTED TO SUCTION. BED ON LOW POSITION. WILL CONTINUE TO MONITOR.
--- NOTE | 2019-10-09 03:10 | NUR ---
PATIENT ASLEEP IN BED. NO APPARENT DISTRESS NOTED. WILL CONTINUE TO MONITOR.
--- NOTE | 2019-10-09 04:55 | NUR ---
ROUNDS DONE. PATIENT ASLEEP IN BED. NO APPARENT DISTRESS NOTED. WITH CHEST TUBE ON LEFT CHEST CONNECTED TO SUCTION. WILL CONTINUE TO MONITOR.
--- NOTE | 2019-10-09 06:20 | NUR ---
CHECKS DONE. PATIENT ASLEEP IN BED. NO APPARENT DISTRESS NOTED. WITH LEFT CHEST TUBE ON SUCTION. BED ON LOW POSITION. DENIES PAIN NOR DISCOMFORT. WILL CONTINUE TO MONITOR.
--- NOTE | 2019-10-09 07:05 | NUR ---
ENDORSED TO AM SHIFT NURSE FOR CONTINUITY OF CARE.
--- NOTE | 2019-10-09 07:06 | NUR ---
RECEIVED PATIENT FROM COUNSELOR [employer]URS[employer]ATION NURSEHELENA. PATIENT IS SLEEPING AT THIS TIME. NO DISTRESS NOTED. RESPIRATIONS EVEN AND UNLABORED, ON ROOM AIR. VISIBLE CHEST RISE NOTED. CHEST TUBE IN PLACE. WATER SUCTION. OUTPUT OF 92 ML. ABDOMEN SOFT AND NONTENDER. PATIENT SKIN IS INTACT, WARM AND DRY. IV IN THE LEFT FOREARM G22, SALINE LOCK. PATIENT IS CONTINENT. PATIENT IS BEDREST. BED IN LOW POSITION. CALL LIGHT IS WITHIN REACH. GIRLFRIEND AT BEDSIDE. WILL CONTINUE TO MONITOR
[2019-10-09 07:23] LABS: BASOPHILS % (AUTO) 0.6 % (0.0-2.0); EOSINOPHILS # (AUTO) 0.3 K/uL (0-0.4); EOSINOPHILS % (AUTO) 4.6 % (0.0-4.0); HEMATOCRIT 44.9 % (36-52); HEMOGLOBIN 14.9 g/dL (12.0-18.0); LYMPHOCYTES # (AUTO) 1.5 K/uL (2.0-11.5); LYMPHOCYTES % (AUTO) 26.6 % (20.5-51.1); MEAN CORPUSCULAR HEMOGLOBIN 31 pg (27-31); MEAN CORPUSCULAR HGB CONC 33 g/dL (33-37); MEAN CORPUSCULAR VOLUME 91.6 fL (80-94); MONOCYTES # (AUTO) 0.7 K/uL (0.8-1.0); MONOCYTES % (AUTO) 11.9 % (1.7-9.3); NEUTROPHILS # (AUTO) 3.1 K/uL (1.8-7.7); NEUTROPHILS % (AUTO) 56.3 % (42.2-75.2); PLATELET COUNT (AUTO) 338 K/uL (140-450); RED CELL DISTRIBUTION WIDTH 12.7 % (11.6-13.7); WHITE BLOOD COUNT (AUTO) 5.5 K/uL (4.8-10.8)
[2019-10-09 07:31] LABS: ANION GAP 11.9 (8-16); CARBON DIOXIDE 32.4 mmol/L (21-32); CREATININE 0.9 mg/dL (0.7-1.3); POTASSIUM 4.3 mmol/L (3.5-5.1)
[2019-10-09 07:38] LABS: MAGNESIUM 2.1 mg/dL (1.8-2.4); PHOSPHORUS 4.7 mg/dL (2.5-4.9)
[2019-10-09 08:00] VITALS: BP 118/58
[2019-10-09] MEDS: DOCUSATE SODIUM 100 MG GELCAP PO SCH ×2 (09:00→20:08)
--- NOTE | 2019-10-09 09:07 | NUR ---
PATIENT REFUSED MORNING MEDICATIONS COLACE AND HEPARIN SUBQ. EDUCATED PATIENT REGARDING MEDS. PATIENT STILL REFUSING MEDICATIONS. BED IN LOW. CALL LIGHT IS WITHIN REACH. CHEST TUBE NOTED, WATER SUCTION BUBBLING. PATIENT DENIES ANY SOB. WILL CONTINUE TO MONITOR
--- NOTE | 2019-10-09 09:38 | NUR ---
PATIENT IS EATING BREAKFAST AT THIS TIME. NO SIGNS OF DISTRESS NOTED. BED IN LOW POSITION. CALL LIGHT IS WITHIN REACH. WILL CONTINUE TO MONITOR
--- NOTE | 2019-10-09 10:31 | NUR ---
PATIENT REQUESTED NEW GOWN. GIVEN NEW GOWN. PATIENT DENIES SOB. WILL CONTINUE TO MONITOR
--- NOTE | 2019-10-09 11:22 | NUR ---
PATIENT IS AWAKE, WATCHING TV. PATIENT DENIES PAIN AND SOB. CHEST TUBE GIRLFRIEND AT BEDSIDE. BED IN LOW POSITION. CALL LIGHT IS WITHIN REACH.
[2019-10-09] MEDS: HYDROcodone/APAP 5/325 MG 1 TAB TAB PO PRN (12:28)
--- NOTE | 2019-10-09 12:29 | NUR ---
PATIENT C/O OF PAIN 610. GIVEN NORCO FOR PAIN 02/28. EXPLAINED TO PATIENT MEDICATION. PATIENT VERBALIZED UNDERSTANDING. WILL REASSESS
--- NOTE | 2019-10-09 14:48 | NUR ---
PATIENT REQUESTED LINENS. GIVEN LINENS. PATIENT STATED HE AND HIS GIRLFRIEND WILL FIX THE BEDS. I OFFERED TO HELP BUT THEY REFUSED.
[2019-10-09 16:00] VITALS: BP 138/89
--- NOTE | 2019-10-09 16:10 | NUR ---
MADE ROUNDS. PATIENT IS AWAKE, ON HIS CELLPHONE. PATIENT DENIES SOB OR PAIN. WILL CONTINUE TO MONITOR. GIRLFRIEND AT BEDSIDE
--- NOTE | 2019-10-09 17:19 | NUR ---
ROMA, BUSINESS EXECUTIVE AT [facility] CALLED STATED NO BED AVAILABLE AND ALSO THEY ARE AWAITING FOR THE AUTH FROM [employer].
--- NOTE | 2019-10-09 19:07 | NUR ---
PATIENT IS WATCHING TV AT THIS TIME. IN STABLE CONDITION. WILL ENDORSE TO AEROLOGIST NURSE
--- NOTE | 2019-10-09 19:08 | NUR ---
RECEIVED BEDSIDE REPORT FROM DAY RN. PATIENT IS LAYING COMFORTABLY IN BED. AAOX4. NO DISTRESS NOTED. RESPIRATIONS EVEN AND UNLABORED, ON ROOM AIR. VISIBLE CHEST RISE NOTED. CHEST TUBE IN PLACE AT L MID AXILLARY TO WATER SUCTION. ABDOMEN SOFT AND NONTENDER. PATIENT SKIN IS INTACT, WARM AND DRY. IV IN THE LEFT FOREARM G22, SALINE LOCK. PATIENT IS CONTINENT. PATIENT IS BEDREST. BED IN LOW POSITION. CALL LIGHT IS WITHIN REACH.WILL CONTINUE TO MONITOR
--- NOTE | 2019-10-09 21:00 | NUR ---
VSS. PT DENIES PAIN. PT REFUSED MEDICATIONS. EDUCATED PT ON REASON FOR MEDICATIONS VERBALIZED UNDERSTANDING. ALL NEEDS MET AT THIS TIME. WILL CONTINUE TO MONITOR.
--- NOTE | 2019-10-09 22:45 | NUR ---
PT IS LAYING IN BED EATING WITH GIRLFRIEND AT BEDSIDE. NO S/S OF DISTRESS. WILL CONTINUE TO MONITOR.
[2019-10-10] VITALS: BP 141/53
--- NOTE | 2019-10-10 | NUR ---
VSS. PT IS LAYING COMFORTABLY IN BED. NO S/S OF DISTRESS NOTED. GIRLFRIEND IS AT BEDSIDE. CALL LIGHT IS WITHIN REACH.
--- NOTE | 2019-10-10 02:12 | NUR ---
GAVE BEDSIDE REPORT TO CHANNEL DEVELOPMENT MANAGER. PT ENDORSED IN STABLE CONDITION.
--- NOTE | 2019-10-10 02:30 | NUR ---
RECEIVED REPORT OF PT.HIS CONDITION IS STABLE.CHEST TUBE INTACT.NO C/O PAIN OR ANY COMPLAIN.WILL CONTINUE MONITORING.
--- NOTE | 2019-10-10 06:20 | NUR ---
pt slept well.had only 10ml drainage .no s/s of any distress now.
--- NOTE | 2019-10-10 07:10 | NUR ---
RECEIVED BEDSIDE REPORT FROM APPRENTICE PLANT ATTENDANT NURSE. PT IS AWAKE IN BED, NO DISTRESS, CHEST TUBE IN PLACE ON CONTINUOUS SUCTION. PT STATES THAT HIS PNEUMOTHORAX IS NOT GETTING BETTER, AND HE IS LOOKING TO TRANSFER OUT TODAY TO ANOTHER HOSPITAL FOR SURGERY. IV SITE R AC 22 G, SALINE LOCK. NO C/O PAIN. GIRLFRIEND IS AT THE BEDSIDE. WILL CONTINUE TO MONITOR,.
--- NOTE | 2019-10-10 07:45 | NUR ---
PT AND GIRLFRIEND STATE THAT THEY ARE TRYING TO TRANSFER [facility], SPECIFICALLY [facility]. THEY HAVE PERSONALLY CONTACTED [facility], WHICH TOLD THEM THAT PT HAS TO HAVE SURGERY TODAY TO FIX HIS PNEUMOTHORAX. THEY STATE THAT THE RESIDENT DOCTOR AND CHARGE NURSE ARE AWARE. WILL FOLLOW UP WITH CM.
[2019-10-10 08:00] VITALS: BP 124/67
[2019-10-10] MEDS: DOCUSATE SODIUM 100 MG GELCAP PO SCH (08:19)
--- NOTE | 2019-10-10 08:27 | NUR ---
PT REFUSED AM MEDS.
--- NOTE | 2019-10-10 11:17 | NUR ---
PT AWAKE AND ALERT, NO C/O PAIN, FAMILY IS AT BEDSIDE. PER PT'S GIRLFRIEND, PT HAS STARTED C/O "SUBCUTANEOUS EMPHYSEMA" ON HIS R SIDE LUNG 10 MINUTES AGO, AND THAT THEY WISH TO TRANSFER THE PT OUT TO [facility]. DR JOSEPH MADE AWARE. [place] [facility] IS ALREADY WORKING ON THE CASE. PT AND FAMILY WERE REASSURED THAT EVERYTHING IS BEING DONE TO FACILITATE A TRANSFER SOON POSSIBLE.
--- NOTE | 2019-10-10 13:36 | NUR ---
GAVE PHONE REPORT TO BEATRIS GARNICA, AT [facility], FOR PT'S TRANSFER LATER TODAY.
--- NOTE | 2019-10-10 14:55 | NUR ---
PT PICKED UP BY [facility] TO TRANSFER TO [facility]. PT WAS GIVEN DC INSTRUCTIONS AND VERBALIZED UNDERSTANDING. IV KEPT INTACT. WRIST BAND REMOVED. PT LEFT IN STABLE CONDITION.
== END 2019-10-10 14:54 | disposition short-term general hospital (02) | DRG 201 ==
LOC: MED 16:04 → MTU 18:32 → MIC 10-04 13:34 → MTU 10-04 19:00
PROVIDERS: ADMIT Family Medicine; ATTEND Family Medicine
PROC: 0W9B00Z Drainage of Left Pleural Cavity with Drainage Device, Open Approach (ICD-10-PCS; principal; 2019-10-04)
PROC: 0D9670Z Drainage of Stomach with Drainage Device, Via Natural or Artificial Opening (ICD-10-PCS; 2019-10-08)
DX: J93.83 Other pneumothorax (principal); J45.909 Unspecified asthma, uncomplicated; D72.829 Elevated white blood cell count, unspecified; F12.10 Cannabis abuse, uncomplicated; Z87.09 Personal history of other diseases of the respiratory system
CPT/HCPCS: 36415; 71045; 71250; 80048; 80305; 81001; 83036; 83735; 83880; 84100; 84443; 84484; 85025; 85610; 85730; 87081; 93005; 96374; 96375; 99285; J1644; J1885; J2001; J2250; J2270; J3010; Q0092